=== PATIENT | female | born 1940 | race Caucasian/White ===

== ENCOUNTER 2018-07-12 15:54 | Emergency (ER) | payer OTHER ==
--- NOTE | 2018-07-12 16:35 | RAD REPORT ---
EXAM DESCRIPTION: RAD - Wrist Right 3 View - 07/12/2018 4:26 pm CLINICAL HISTORY: PAIN Pain COMPARISON: No comparisons FINDINGS: No fracture or dislocation seen. Soft tissue swelling is present. IMPRESSION: No acute finding is evident.
--- NOTE | 2018-07-12 16:39 | ER ---
Nurse's Notes [facility] Name: Francis Barnes Age: 78 yrs Sex: Female : 1940 Arrival Date: 07/12/2018 Time: 15:56 Bed 15 Private MD: Diagnosis: Monoarthritis, not elsewhere classified, right wrist Presentation: 07/12 15:59 Presenting complaint: Patient states: Right wrist pain, worse throughout the day for 2 la1 weeks or so, pt denies injury. Transition of care: patient was not received from another setting of care. Onset of symptoms was July 12, 2018. Risk Assessment: Do you want to hurt yourself or someone else? Patient reports no desire to harm self or others. Initial Sepsis Screen: Does the patient meet any 2 criteria? No. Patient's initial sepsis screen is negative. Does the patient have a suspected source of infection? No. Patient's initial sepsis screen is negative. Care prior to arrival: None. 15:59 Method Of Arrival: Ambulatory la1 15:59 Acuity: KEENA 4 la1 Historical: - Allergies: 15:59 No Known Allergies; la1 - PMHx: 15:59 Hypertension; la1 - Immunization history:: Adult Immunizations up to date. - Social history:: Smoking status: Patient/guardian denies using tobacco. - Ebola Screening: : No symptoms or risks identified at this time. Screenin:04 Abuse screen: Denies threats or abuse. Nutritional screening: No deficits noted. tw2 Tuberculosis screening: No symptoms or risk factors identified. Fall Risk None identified. Assessment: 16:05 General: Appears in no apparent distress. Behavior is calm, cooperative, appropriate tw2 for age. Pain: Complains of pain in right wrist. Neuro: Level of Consciousness is awake, alert, obeys commands, Oriented to person, place, time, situation. Cardiovascular: Patient's skin is warm and dry. Respiratory: Airway is patent Respiratory effort is even, unlabored, Respiratory pattern is regular, symmetrical. GI: No signs and/or symptoms were reported involving the gastrointestinal system. : No signs and/or symptoms were reported regarding the genitourinary system. Derm: No signs and/or symptoms reported regarding the dermatologic system. Musculoskeletal: Circulation, motion, and sensation intact. Range of motion: intact in all extremities. 16:46 Reassessment: Patient appears in no apparent distress at this time. No changes from tw2 previously documented assessment. Patient is alert, oriented x 3, equal unlabored respirations, skin warm/dry/pink. Vital Signs: 16:01 BP 147 / 78; Pulse 87; Resp 16; Temp 98.2; Pulse Ox 99% on R/A; Weight 68.04 kg; Height la1 5 ft. 5 in. (165.10 cm); 16:01 Body Mass Index 24.96 (68.04 kg, 165.10 cm) la1 ED Course: 15:56 Patient arrived in ED. mr 16:00 Triage completed. la1 16:00 Arm band placed on left wrist. la1 16:03 Florentino Austin PA is PHCP. jr8 16:03 Jean-Pierre Jason MD is Attending Physician. jr8 16:04 Jennifer Velasquez RN is Primary Nurse. tw2 16:04 Bed in low position. Call light in reach. cost reduction engineer on. Pulse ox on. NIBP on. tw2 16:21 X-ray completed. Portable x-ray completed in exam room. Patient tolerated procedure la2 well. 16:26 XRAY Wrist RIGHT 3 view In Process Unspecified. EDMS 16:37 Devyn Lam MD is Referral Physician. jr8 16:46 No provider procedures requiring assistance completed. Patient did not have IV access tw2 during this emergency room visit. Administered Medications: No medications were administered Outcome: 16:38 Discharge ordered by . jr8 16:46 Discharged to home ambulatory, with significant other. tw2 16:46 Condition: stable 16:46 Discharge instructions given to patient, significant other, Instructed on discharge instructions, follow up and referral plans. medication usage, Demonstrated understanding of instructions, follow-up care, medications, Prescriptions given X 1. 16:46 Patient left the ED. tw2 Signatures: Dispatcher [employer] EDCO Shama Allen mr Florentino Austin PA PA jr8 Surya Esteban RN RN la1 Jennifer Velasquez RN RN tw2 Mary Mckeon la2
--- NOTE | 2018-07-12 16:39 | EDPHYS ---
Physician Documentation [facility] Name: Francis Barnes Age: 78 yrs Sex: Female : 1940 Arrival Date: 07/12/2018 Time: 15:56 Bed 15 Private MD: ED Physician Jean-Pierre Jason HPI: 07/12 16:11 This 78 yrs old Female presents to ER via Ambulatory with complaints of Wrist jr8 Injury. 16:11 The patient or guardian reports pain. The complaints affect the right wrist diffusely. jr8 Context: The problem was sustained at an unknown location, resulted from an unknown cause. Onset: The symptoms/episode began/occurred acutely, 2 week(s) ago. Modifying factors: The symptoms are alleviated by nothing, the symptoms are aggravated by movement. Associated signs and symptoms: The patient has no apparent associated signs or symptoms. The patient has not experienced similar symptoms in the past. The patient has not recently seen a physician. Historical: - Allergies: 15:59 No Known Allergies; la1 - PMHx: 15:59 Hypertension; la1 - Immunization history:: Adult Immunizations up to date. - Social history:: Smoking status: Patient/guardian denies using tobacco. - Ebola Screening: : No symptoms or risks identified at this time. ROS: 16:11 Constitutional: Negative for fever, chills, and weight loss. jr8 16:11 MS/extremity: Positive for pain, tenderness, of the right wrist. 16:11 All other systems are negative. Exam: 16:11 Constitutional: This is a well developed, well nourished patient who is awake, alert, jr8 and in no acute distress. Cardiovascular: Regular rate and rhythm with a normal S1 and S2. No gallops, murmurs, or rubs. Normal PMI, no JVD. No pulse deficits. Respiratory: Lungs have equal breath sounds bilaterally, clear to auscultation and percussion. No rales, rhonchi or wheezes noted. No increased work of breathing, no retractions or nasal flaring. Abdomen/GI: Soft, non-tender, with normal bowel sounds. No distension or tympany. No guarding or rebound. No evidence of tenderness throughout. Back: No spinal tenderness. No costovertebral tenderness. Full range of motion. Skin: Warm, dry with normal turgor. Normal color with no rashes, no lesions, and no evidence of cellulitis. Neuro: Awake and alert, GCS 15, oriented to person, place, time, and situation. Cranial nerves II-XII grossly intact. Motor strength 5/5 in all extremities. Sensory grossly intact. Cerebellar exam normal. Normal gait. 16:11 Musculoskeletal/extremity: Extremities: grossly normal except: noted in the right wrist: pain, swelling, tenderness, to right wrist diffusely , ROM: intact in all extremities, full active range of motion, full passive range of motion, limited active range of motion due to pain, limited passive range of motion due to pain, Circulation is intact in all extremities. Sensation intact. Vital Signs: 16:01 BP 147 / 78; Pulse 87; Resp 16; Temp 98.2; Pulse Ox 99% on R/A; Weight 68.04 kg; Height la1 5 ft. 5 in. (165.10 cm); 16:01 Body Mass Index 24.96 (68.04 kg, 165.10 cm) la1 Procedures: 16:37 Splinting: Splint applied to right wrist using wrist splint, applied by nurse. Examined jr8 by me, post splint application: neurovascular intact, 2+ distal pulses palpable, brisk capillary refill noted, Patient tolerated well. MDM: 16:11 Patient medically screened. jr8 16:37 Data reviewed: vital signs, nurses notes, radiologic studies, plain films, and as a jr8 result, I will discharge patient. Data interpreted: Pulse oximetry: on room air is 99 %. Interpretation: normal. Counseling: I had a detailed discussion with the patient and/or guardian regarding: the historical points, exam findings, and any diagnostic results supporting the discharge/admit diagnosis, radiology results, the need for outpatient follow up, a orthopedic surgeon, to return to the emergency department if symptoms worsen or persist or if there are any questions or concerns that arise at home. 07/12 16:13 Order name: XRAY Wrist RIGHT 3 view; Complete Time: 16:36 jr8 07/12 16:36 Order name: Wrist Splint; Complete Time: 16:45 jr8 Administered Medications: No medications were administered Disposition: 17:14 Co-signature as Attending Physician, Jean-Pierre Jason MD. rn Disposition: 07/12/18 16:38 Discharged to Home. Impression: Monoarthritis, not elsewhere classified, right wrist. - Condition is Stable. - Discharge Instructions: Arthritis, Wrist Pain. - Prescriptions for Mobic 7.5 mg Oral Tablet - take 1 tablet by ORAL route once daily As needed take with food; 20 tablet. - Medication Reconciliation Form, Thank You Letter, Antibiotic Education, Prescription Opioid Use form. - Follow up: Devyn Lam MD; When: 1 week; Reason: Recheck today's complaints, Continuance of care, Re-evaluation by your physician. - Problem is new. - Symptoms have improved. Signatures: Dispatcher [employer] EDMS Jean-Pierre Jason MD MD rn Florentino Austin PA PA jr8 Surya Esteban RN RN la1 Jennifer Velasquez RN RN tw2 Corrections: (The following items were deleted from the chart) 16:46 16:38 07/12/2018 16:38 Discharged to Home. Impression: Monoarthritis, not elsewhere tw2 classified, right wrist. Condition is Stable. Forms are Medication Reconciliation Form, Thank You Letter, Antibiotic Education, Prescription Opioid Use. Follow up: Devyn Lam; When: 1 week; Reason: Recheck today's complaints, Continuance of care, Re-evaluation by your physician. Problem is new. Symptoms have improved. jr8
== END 2018-07-12 16:46 | disposition home or self-care (01) ==
LOC: ER 15:54
DX: M13.131 Monoarthritis, not elsewhere classified, right wrist (principal); I10 Essential (primary) hypertension
CPT/HCPCS: 99284